=== PATIENT | male | born 1970 | race Caucasian/White ===

== ENCOUNTER 2024-06-29 19:19 | Inpatient (IN) | payer MEDICARE, SELFPAY ==
[2024-06-29 19:23] VITALS: BP 169/107; PULSE 62; RESP 18; TEMP 36.7; O2SAT 98; BMI 24.4
--- NOTE | 2024-06-29 19:27 | ECG_ITS ---
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 Measurements Intervals [place] Rate: 85 P: 68 DE: 139 QRS: 41 QRSD: 102 T: 54 QT: 374 QTc: 446 Interpretive Statements SINUS RHYTHM possible left atrial enlargement INCOMPLETE RIGHT BUNDLE BRANCH BLOCK [90+ ms QRS DURATION, TERMINAL R IN V1/V2, 40+ ms S IN I/aVL/V4/V5/V6] Poor R wave progression No previous ECG available for comparison Electronically Signed On 06-30-2024 16:28:38 CDT by Margo Mccoy M.D. [email or web address]
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
--- NOTE | 2024-06-29 19:32 | PC.NURSE ---
96 Hour Involuntary Hold Patient Rights have been read to the patient and a copy of the same has been provided to him. Environmental Conservation Officer Sara Mantilla was present at chairside during the presentation of Rights.
[2024-06-29 20:15] LABS: Bilirubin Urine Negative (Negative); Blood Urine Negative (Negative); Glucose Urine UA Negative (Normal); Ketones Urine Negative (Negative); Leukocyte Esterase Urine Negative (Negative); Nitrate Urine Negative (Negative); Protein Urine 1+ (Negative); Specific Gravity, Urine 1.028 (1.005-1.030); Urine Appearance Clear (CLEAR); Urine Color Yellow (Yellow); pH Urine 5.5 (5-7)
[2024-06-29 20:17] LABS: Add Urine Microscopic? YES; Bacteria Urine None Seen /hpf; RBC Urine 0-2 /hpf (0-2); Squamous Epithelial Cell Urine 0-5 /hpf (0-5); WBC Urine 0-5 /hpf (0-5)
[2024-06-29 20:24] LABS: Amphetamines Screen Urine Positive (Negative); Barbiturates Screen Urine Negative (Negative); Benzodiazepines Screen Urine Positive (Negative); Cocaine Screen Urine Negative (Negative); Opiate Screen Urine Negative (Negative); PCP Screen Urine Negative (Negative); THC Screen Urine Positive (Negative)
--- NOTE | 2024-06-29 20:25 | PC.NURSE ---
belongings collected and inventoried by security officers.
[2024-06-29 20:35] LABS: UA Slide Review UA Slide Review Perf
[2024-06-29 20:36] LABS: Sperm Urine 1+ /hpf
[2024-06-29 20:38] LABS: Basophils # 0.1 10^3/uL (0.0-0.1); Basophils % 0.7 %; Eosinophils # 0.1 10^3/uL (0.0-0.8); Eosinophils % 0.8 %; Hematocrit 45.7 % (37-53); Lymphocytes % 18.1 %; Mean Corpuscular HGB Conc 32.4 g/dL (30-55); Mean Corpuscular Hemoglobin 27.1 pg (27-33); Mean Corpuscular Volume 83.7 fl (82-101); Mean Platelet Volume 9.6 fL (7.4-10.4); Monocytes # 0.8 10^3/uL (0.2-0.9); Neutrophils # 7.97 10^3/uL (1.8-7.7); Nucleated Red Blood Cells % 0 %; Platelet Count 274 10^3/cmm (157-399); Red Blood Count 5.46 10^6/uL (3.85-5.65); Red Cell Distribution Width 14.2 % (12.1-15.1); White Blood Count 10.93 10^3/uL (3.29-11.43)
[2024-06-29] MEDS: ALPRAZolam 0.5 mg Tablet 2 MG PO (21:01)
[2024-06-29 21:06] VITALS: BP 161/105; PULSE 82; O2SAT 98
[2024-06-29 21:08] LABS: Alanine Aminotransferase 28 U/L (0-41); Albumin Level 4.6 g/dL (3.5-5.2); Alkaline Phosphatase 100 U/L (40-130); Anion Gap 13.7 (5-19); Aspartate Amino Transferase 38 U/L (0-40); Blood Urea Nitrogen 21 mg/dL (6-20); Calcium 9.5 mg/dL (8.5-10.5); Carbon Dioxide 27 mmol/L (22-29); Chloride 104 mmol/L (98-107); Creatinine Clr Calc Pharmacy 43.8997; Globulin 2.9 g/dL (1.3-4.6); Glomerular Filtration Rate 52.4 mL/min (90-130); Glucose 102 mg/dL (65-115); Osmolality Calculated 295 mOsm/kg (285-295); Potassium 3.7 mmol/L (3.5-5.1); Sodium 141 mmol/L (136-145); Thyroid Stimulating Hormone 0.97 uIU/mL (0.27-4.20); Total Bilirubin 0.4 mg/dL (0.15-1.2); Total Protein 7.5 g/dL (6.6-8.7)
[2024-06-29 21:09] LABS: Acetaminophen < 5.0 ug/mL (10-30); Alcohol Level < 10 mg/dL (0-10); Salicylate < 0.3 mg/dL (3-10)
[2024-06-29 22:17] VITALS: BP 161/88; PULSE 93; RESP 20; TEMP 36.9; O2SAT 99
[2024-06-29 22:19] VITALS: BP 157/92; PULSE 71; RESP 17; O2SAT 97
[2024-06-30 06:00] VITALS: BP 155/87; PULSE 78; RESP 16; O2SAT 95
[2024-06-30] MEDS: ALPRAZolam 0.5 mg Tablet 2 MG PO ×2 (08:24→17:12)
[2024-06-30] MEDS: acetaminophen 325 mg Tablet 650 MG PO (08:24)
[2024-06-30] MEDS: OLANZapine 5 mg ODT PO (08:52)
[2024-06-30 14:00] VITALS: BP 120/71; PULSE 66; RESP 16; TEMP 36.7; O2SAT 96
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
[2024-06-30] MEDS: nicotine 2 mg Gum BUCCAL ×2 (18:24→20:02)
[2024-06-30 20:24] VITALS: BP 164/94; PULSE 85; RESP 18; TEMP 37.2; O2SAT 100
[2024-06-30] MEDS: hyDROXYzine 25 mg Capsule 50 MG PO (21:15)
[2024-06-30] MEDS: trazodone 50 mg Tablet PO (21:15)
[2024-06-30] MEDS: sertraline 100 mg Tablet 200 MG PO (21:15)
[2024-07-01 06:00] VITALS: BP 144/89; PULSE 60; RESP 18; O2SAT 98
[2024-07-01] MEDS: ALPRAZolam 0.5 mg Tablet 2 MG PO ×2 (08:48→17:29)
[2024-07-01] MEDS: nicotine 2 mg Gum BUCCAL ×4 (08:53→19:38)
[2024-07-01 14:00] VITALS: BP 148/87; PULSE 77; RESP 18; TEMP 36.9; O2SAT 98
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
[2024-07-01 19:22] VITALS: BP 156/98; PULSE 73; RESP 20; TEMP 36.7; O2SAT 99
[2024-07-01] MEDS: sertraline 100 mg Tablet 200 MG PO (20:05)
[2024-07-01] MEDS: hyDROXYzine 25 mg Capsule 50 MG PO (20:05)
[2024-07-02 06:00] VITALS: BP 139/84; PULSE 71; RESP 16; TEMP 36.5; O2SAT 100
[2024-07-02] MEDS: ALPRAZolam 0.5 mg Tablet 2 MG PO ×2 (08:50→17:24)
[2024-07-02] MEDS: nicotine 2 mg Gum BUCCAL ×3 (08:50→17:27)
[2024-07-02 14:00] VITALS: BP 154/92; PULSE 84; RESP 16; TEMP 36.9; O2SAT 99
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
[2024-07-02 19:37] VITALS: BP 195/98; PULSE 62; RESP 18; TEMP 36.6; O2SAT 99
[2024-07-02] MEDS: propranolol 20 mg Tablet PO (20:34)
[2024-07-02] MEDS: sertraline 100 mg Tablet 200 MG PO (20:34)
[2024-07-02] MEDS: OLANZapine 5 mg ODT PO (20:34)
[2024-07-03 06:00] VITALS: BP 158/94; PULSE 63; RESP 18; TEMP 36.5; O2SAT 100
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
[2024-07-03] MEDS: propranolol 20 mg Tablet PO ×3 (08:02→21:11)
[2024-07-03] MEDS: ALPRAZolam 0.5 mg Tablet 2 MG PO ×2 (08:03→17:40)
[2024-07-03] MEDS: nicotine 2 mg Gum BUCCAL ×2 (08:06→18:24)
--- NOTE | 2024-07-03 09:46 | PC.OT ---
OT EVALUATION ATTEMPTED TWICE THIS A.M. PATIENT IS SLEEPING SOUNDLY
[2024-07-03 14:00] VITALS: BP 166/93; PULSE 61; RESP 16; TEMP 36.9; O2SAT 98
[2024-07-03] MEDS: trazodone 50 mg Tablet PO (20:20)
[2024-07-03 20:26] VITALS: BP 165/92; PULSE 70; RESP 17; TEMP 36.8; O2SAT 99
[2024-07-03] MEDS: sertraline 100 mg Tablet 250 MG PO (21:11)
[2024-07-04 06:00] VITALS: BP 146/90; PULSE 60; RESP 18; TEMP 36.4; O2SAT 98
[2024-07-04] MEDS: propranolol 20 mg Tablet PO ×3 (09:03→21:19)
[2024-07-04] MEDS: ALPRAZolam 0.5 mg Tablet 2 MG PO ×2 (09:03→17:36)
[2024-07-04] MEDS: nicotine 2 mg Gum BUCCAL ×3 (09:03→17:36)
[2024-07-04 14:00] VITALS: BP 143/89; PULSE 63; RESP 17; TEMP 36.6; O2SAT 99
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
[2024-07-04 20:14] VITALS: BP 143/95; PULSE 72; RESP 18; O2SAT 97
[2024-07-04] MEDS: sertraline 100 mg Tablet 250 MG PO (21:19)
[2024-07-05 06:00] VITALS: BP 155/90; PULSE 58; RESP 17; TEMP 36.6; O2SAT 99
[2024-07-05] MEDS: ALPRAZolam 0.5 mg Tablet 2 MG PO (08:42)
[2024-07-05] MEDS: nicotine 2 mg Gum BUCCAL ×2 (08:42→13:07)
[2024-07-05] MEDS: propranolol 20 mg Tablet PO ×2 (08:43→14:21)
[2024-07-05 14:00] VITALS: BP 127/75; PULSE 58; RESP 16; TEMP 36.8; O2SAT 97
--- NOTE | 2024-07-05 16:13 | DCPLANNER ---
IMM was given to pt and rights explained and copy placed in pts file.
[2024-07-05 16:34] VITALS: BP 127/75; PULSE 58; RESP 16; TEMP 36.8; O2SAT 97
== END 2024-07-05 17:14 | disposition home or self-care (01) | DRG 880 ==
LOC: ER 20:34 → NP 21:53
PROVIDERS: Admitting Provider Psychiatry & Neurology Psychiatry; Emergency Provider Emergency Medicine; Visit Provider Psychiatry & Neurology Psychiatry
DX: F41.0 Panic disorder [episodic paroxysmal anxiety] (principal); R45.850 Homicidal ideations; F91.1 Conduct disorder, childhood-onset type; F32.A Depression, unspecified; T50.906A Underdosing of unspecified drugs, medicaments and biological substances, initial encounter; F17.210 Nicotine dependence, cigarettes, uncomplicated; F10.11 Alcohol abuse, in remission; Z91.128 Patient's intentional underdosing of medication regimen for other reason; Z81.8 Family history of other mental and behavioral disorders
CPT/HCPCS: 36415; 80053; 80306; 80307; 81001; 84443; 85025; 93005; 97150; 97165; 99285; J9999